=== PATIENT | female | born 1955 | race Caucasian/White ===

== ENCOUNTER 2021-10-08 16:36 | Emergency (ER) | payer OTHER ==
--- OUTSIDE RECORDS SUMMARY | 2021-10-08 16:39 | XMS REPORT | Continuity of Care Document ---
:1955 Author Organization [facility] t Address [address] [place] [address] Care Team Providers Name Role Phone Tani FOFANA Attending Clinician Unavailable Jose L MAC Attending Clinician Payers Payer Name Policy Type Policy Number Effective Date Expiration Date [place]iley ESPARZA [facility] [id number] 2018 00:00:00 Problems Condition Condition Condition Status Onset Resolution Last Treating Co mments Source Name Details Category Date Date Treatment Clinician Date Elevated Elevated Disease Active Unive rs AST (SGOT) AST (SGOT) 02-22 it y of 00:00: [place] [facility] Chronic Chronic Disease Active Univers constipati constipati 02-18 it y of on on 00:: Medical Branch Fatigue, Fatigue, Disease Active Unive rs unspecifie unspecifie 02-18 it y of d type d type 00:00: Medical Branch Stress at Stress at Disease Active Uni vers home home 02-18 ity of 00:: Medical Branch Stress at Stress at Disease Active Uni vers work work 02-18 ity of 00:: Medical Branch Essential Essential Disease Active Uni vers hypertensi hypertensi 02-18 it y of on on 00:: Medical Branch Hyperlipid Hyperlipid Disease Active U nivers emia, emia, 02-18 ity of [place]spec[place] Medical hyperlipid hyperlipid Br anch emia type emia type Allergies, Adverse Reactions, Alerts Allergy Allergy Status Severity Reaction(s) Onset Inactive Treating Comm ents Source Name Type Date Date Clinician Ibuprofe Propensi Active Hives Univer s n ty to 4-30 ity of adverse 00:00: [place] reaction 00 Medical s Branch IBUPROFE DRUG Active Hives Univers N INGREDI 4-30 ity of 00:00: [place] 00 Medical Branch Erythrom Propensi Active Unknown - Uni vers ycin ty to See comments 02-12 ity of adverse 00:00: [place] reaction 00 Medical s Branch ERYTHROM DRUG Active Unknown-Cmnt Un pola YCIN 02-12 ity of 00:00: [place] 00 Medical Branch Sulfa Propensi Active Unknown - 2014-08 Unive rs (Sulfona ty to See comments 0-27 it y of mide adverse 00:00: [place] Antibiot reaction 00 Medica l ics) s Branch SULFA Drug Active Unknown-Cmnt 2014-08 Univ ers (SULFONA Class 0-27 ity of MIDE 00:00: [place] ANTIBIOT 00 Medical ICS) Branch Social History Social Habit Start Date Stop Date Quantity Comments Source Alcohol intake [facility] Status Start Date Stop Date Source Never smoker [facility] Medications Ordered Filled Start Stop Current Ordering Indication Dosage Frequency Signature Comments Components Source Medication Medication Date Date Medication? Clinician (SIG) Name Name hydroCHLORO Yes [id number] 25mg Take 1 Univers thiazide 25 8-15 tablet by ity of mg tablet 00:00: mouth [place] 00 every Medical morning. Branch hydroCHLORO Yes [id number] 25mg Take 1 Univers thiazide 25 8-15 tablet by ity of mg tablet 00:00: mouth [place] 00 every Medical morning. Branch lovastatin Yes [id number] 20mg Take 1 U nivers 20 mg 7-24 tablet by ity of tablet 00:00: mouth at [place] 00 bedtime. Medical Branch lovastatin Yes [id number] 20mg Take 1 U nivers 20 mg 7-24 tablet by ity of tablet 00:00: mouth at [place] 00 bedtime. Medical Branch HYDROCHLORO 2019- No [id number] 25mg TAKE 1 Univers THIAZIDE 25 7-16 08-15 TABLET BY it y of mg tablet 00:00: 00:00 MOUTH [place] 00 :00 EVERY Medical MORNING Branch ALPRAZOLAM Yes [id number] TAKE 1 U nivers 0.5 mg 4-09 TABLET BY ity of tablet 00:00: MOUTH [place] 00 EVERY DAY Medical NEEDED Branch FOR ANXIETY ALPRAZOLAM Yes [id number] TAKE 1 U nivers 0.5 mg 4-09 TABLET BY ity of tablet 00:00: MOUTH [place] 00 EVERY DAY Medical NEEDED Branch FOR ANXIETY vortioxetin Yes [id number] 10mg Take 10 mg Univers e 4-30 by mouth ity of ([place] 10 mg Tab 00 Medical [facility] montelukast Yes [id number] 10mg Take 1 Univers 10 mg 4-30 tablet by ity of tablet 00:00: mouth [place] 00 daily. Medical Branch linaclotide Yes [id number] 290mg Take 290 Univers (LINZESS) 4-30 mg by ity of 290 mcg Cap 00:00: mouth [place] 00 daily. Medical Branch vortioxetin Yes [id number] 10mg Take 10 mg Univers e 4-30 by mouth ity of ([place] 10 mg Tab 00 Medical Branch montelukast Yes [id number] 10mg Take 1 Univers 10 mg 4-30 tablet by ity of tablet 00:00: mouth [place] 00 daily. Medical Branch linaclotide Yes [id number] 290mg Take 290 Univers (LINZESS) 4-30 mg by ity of 290 mcg Cap 00:00: mouth [place] 00 daily. Medical Branch Procedures This patient has no known procedures. Encounters Start End Encounter Admission Attending Care Care Encounter Source Date/Time Date/Time Type Type Clinicians Facility Department ID 2020-10-14 2020-10-14 Outpatient Kesly FOFANA [facility] [id number] Univers 15:20:00 15:20:00 [id number] 2020-10-14 Outpatient Kelsy FOFANA [facility] [id number] Univers 15:20:00 [facility]:20:[facility]-09[facility]16 2020-09-16 Outpatient Kelsy FOFANA [facility] [id number] Univers 15:20:00 15:20:00 MARY [id number] [facility] 2020-09-16 2020-09-16 Outpatient Kelsy FOFANA [facility] [id number] Univers 15:20:00 15:20:00 MARY [facility] 2019-04-17 2019-04-17 [facility] [id number] 00:00:00 00:00:00 [facility] [id number] [place] [id number] Professio [phone] [place] [address] [address] 2019-04-17 2019-04-17 [facility] [id number] Univers 00:00:00 00:00:00 [facility] [id number] it y of [place] [id number] Vinay as Professio [phone] [address] 2019-03-29 2019-03-29 [facility] [id number] 00:00:00 00:00:00 [facility] [id number] [place] [id number] Professio [phone] [place] [address] [address] 2019-03-29 2019-03-29 [facility] [id number] Univers 00:00:00 00:00:00 [facility] [id number] it y of [place] [id number] Vinay as Professio [phone] [address] Results This patient has no known results.
[2021-10-08] MEDS ORDERED: NA CHLORIDE 0.9% 500 ML ONE (17:53)
[2021-10-08] MEDS ORDERED: KETOROLAC 30 MG/ML INJ ONE (18:37)
--- NOTE | 2021-10-08 19:44 | RAD REPORT ---
EXAM DESCRIPTION: CTAbdomen Pelvis W Contrast - 10/08/2021 7:26 pm CLINICAL HISTORY: ABD PAIN COMPARISON: Head Brain Wo Cont dated 10/17/2020; Head Brain Wo Cont dated 04/18/2020No comparisons TECHNIQUE: CT of the abdomen and pelvis was performed. All CT scans are performed using dose optimization technique as appropriate and may include automated exposure control or mA/KV adjustment according to patient size. FINDINGS: Lower chest: Small hiatal hernia. Liver: No acute abnormality or suspicious lesions. Biliary: No biliary ductal dilatation. Stomach: No significant focal abnormality. Duodenum: No significant focal abnormality. Pancreas: No significant abnormality. Spleen: No significant abnormality. Adrenal: No suspicious lesions. Kidney/ureter: No hydronephrosis. 8 mm stone in the upper pole the right kidney. Punctate stone left kidney. Left renal cyst . Retroperitoneum: No retroperitoneal adenopathy. Vascular: No aneurysm. Bowel: Moderate colonic stool.. Appendix not identified. No secondary signs of acute appendicitis . Peritoneum: No ascites or free air. Bladder: Grossly unremarkable. Reproductive: No adnexal masses. Bones: Subacute appearing L1 compression fracture with less than 20% loss of height anteriorly. No joe ny retropulsion. Other: n/a IMPRESSION: No acute intra-abdominal or pelvic finding. Subacute L1 compression fracture. Moderate pancolonic stool burden suggesting constipation. No bowel obstruction .
[2021-10-08] MEDS ORDERED: FLEET ENEMA ADULT PR ONE (20:15)
--- NOTE | 2021-10-08 21:33 | ER ---
Nurse's Notes [facility] Name: Ignacia Trotter Age: 66 yrs Sex: Female : 1955 Arrival Date: 10/08/2021 Time: 16:38 Bed 24 Private MD: Diagnosis: Constipation, unspecified Presentation: 10/08 16:39 Chief complaint: Patient states: its a problem i have had for years and years. i have tw2 such extreme pain on the left side of my back and up under my ribs. it got so bad i made an appt with my dr. i got xrays on the . my dr put me on some medication but it hasnt helped. she called me back an hour ago with results and said i have so much fecal matter backed up that she wanted me to come get a CT and was afraid of a bowel obstruction or a sleeping part of my bowel. and i have been nauseous with it but havent vomited. i have passed a few pellet size stools but that's it. Coronavirus screen: At this time, the client does not indicate any symptoms associated with coronavirus-19. Ebola Screen: Patient denies travel to an Ebola-affected area in the 21 days before illness onset. Initial Sepsis Screen: Does the patient meet any 2 criteria? No. Patient's initial sepsis screen is negative. Does the patient have a suspected source of infection? No. Patient's initial sepsis screen is negative. Risk Assessment: Do you want to hurt yourself or someone else?. Onset of symptoms was October 08, 2021. 16:39 Method Of Arrival: Ambulatory tw2 16:39 Acuity: MARS 3 tw2 Triage Assessment: 16:48 General: Appears in no apparent distress. slender, well groomed, Behavior is calm, tw2 cooperative, appropriate for age. Pain: Complains of pain in abdomen. Musculoskeletal: Range of motion: intact in all extremities. Historical: - Allergies: 16:46 Sulfa (Sulfonamide Antibiotics); tw2 16:46 Ibuprofen; tw2 16:48 Erythromycin; tw2 - Home Meds: 16:46 ezetimibe-simvastatin 10-10 mg oral tab 1 tab once daily [Active]; sertraline 50 mg tw2 oral tab 1 tab once daily [Active]; - PMHx: 16:46 Hypercholesterolemia; tw2 - PSHx: 16:46 tubal ligation; cyst removed right index finger; right foot sx; tw2 - Immunization history:: Client reports receiving the 2nd dose of the Covid vaccine, Flu vaccine is up to date. - Social history:: Smoking status: Patient denies any tobacco usage or history of. Screenin:57 Abuse screen: Denies threats or abuse. Nutritional screening: No deficits noted. tw2 Tuberculosis screening: No symptoms or risk factors identified. Fall Risk None identified. Assessment: 17:09 General: Appears in no apparent distress. comfortable. Pain: Complains of pain in lr4 abdomen and back Pain radiates to back Pain currently is 8 out of 10 on a pain scale. at worst was 10 out of 10 on a pain scale. Pain began years ago. Neuro: No deficits noted. Cardiovascular: No deficits noted. Respiratory: No deficits noted. GI: Abdomen is flat, non-distended, mass in LUQ Reports upper abdominal pain, constipation, nausea, Patient currently denies vomiting. Musculoskeletal: No deficits noted. 19:21 General: Pt taken to CT by tech, via w/c. . joe 19:32 General: The pt just returned from CT. . joe 21:35 Reassessment: Patient states feeling better. Patient states symptoms have improved. Pt lr4 departed ed ambulatory with all personal effects, vss, pt in nad. Neuro: No deficits noted. Vital Signs: 16:39 BP 172 / 95; Pulse 87; Resp 17; Temp 98.2(TE); Pulse Ox 99% on R/A; Weight 60.78 kg tw2 (R); Height 5 ft. 3 in. (160.02 cm); Pain 8/10; 18:02 BP 157 / 89; Pulse 68; Resp 15; Pulse Ox 99% ; Pain 8/10; eo2 18:30 BP 156 / 90; Pulse 72; Resp 15; Pulse Ox 100% ; Pain 8/10; eo2 19:03 Pain 6/10; eo2 19:40 BP 164 / 96; Pulse 84; Resp 18; Pulse Ox 100% on R/A; lr4 20:30 BP 127 / 69; Pulse 73; Resp 18; Pulse Ox 100% on R/A; ss7 21:00 BP 121 / 78; Pulse 75; Resp 18; Pulse Ox 98% ; lr4 16:39 Body Mass Index 23.74 (60.78 kg, 160.02 cm) tw2 ED Course: 16:38 Patient arrived in ED. am2 16:45 Lino Rodriguez MD is Attending Physician. kdr 16:46 Triage completed. tw2 16:50 Arm band placed on. tw2 16:50 Bed in low position. Call light in reach. tw2 16:54 Karla Domingo, RN is Primary Nurse. lr4 17:09 Inserted saline lock: 20 gauge in right antecubital area, using aseptic technique. lr4 17:12 No provider procedures requiring assistance completed. lr4 17:56 Basic Metabolic Panel Sent. eo2 17:56 CBC with Diff Sent. eo2 17:56 Hepatic Function Sent. eo2 17:56 Lipase Sent. eo2 18:02 Pulse ox on. NIBP on. Door closed. Noise minimized. Warm blanket given. eo2 19:01 Report given to Yolanda RUIZ. eo2 19:13 Mitchell Babcock PA is PHCP. cp 19:26 CT Abd/Pelvis - IV Contrast Only In Process Unspecified. EDMS 21:36 IV discontinued. lr4 Administered Medications: 18:01 Drug: NS 0.9% 500 ml Route: IV; Rate: bolus; Site: right antecubital; eo2 19:03 Follow up: Response: No adverse reaction; IV Status: Completed infusion; IV Intake: eo2 500ml 18:36 Drug: Ketorolac 15 mg Route: IVP; Site: right antecubital; eo2 19:03 Follow up: Pain 6/10 Adult; Response: No adverse reaction eo2 21:34 Follow up: Response: Pain is decreased lr4 20:27 Drug: Fleet Enema (sodium phosphate) 133 ml Route: ME; lr4 21:34 Follow up: Response: No adverse reaction; Marked relief of symptoms lr4 Intake: 19:03 IV: 500ml; Total: 500ml. eo2 Outcome: 21:32 Discharge ordered by . cp 21:33 Discharged to home ss7 21:33 Condition: good 21:33 Discharge instructions given to patient, Instructed on discharge instructions, follow up and referral plans. Demonstrated understanding of instructions. 21:43 Patient left the ED. lr4 Signatures: Dispatcher [employer] EDMS Lino Rodriguez MD MD kdr Mitchell Babcock PA PA cp Wise, Tara, RN RN tw2 Regina Cole am2 Monique Marie RN RN joe Anika Estevez RN RN eo2 Yolanda Paige RN RN ss7 Karla Domingo RN RN lr4 Corrections: (The following items were deleted from the chart) 16:49 16:46 Allergies: arithromycin; 16:49 16:46 Home Meds: ezetimibe 10 mg oral tab 1 tab once daily;
--- NOTE | 2021-10-08 21:33 | EDPHYS ---
Physician Documentation [facility] Name: Ignacia Trotter Age: 66 yrs Sex: Female : 1955 Arrival Date: 10/08/2021 Time: 16:38 Bed 24 Private MD: ED Physician Lino Rodriguez HPI: 10/08 18:22 This 66 yrs old Female presents to ER via Ambulatory with complaints of Flank Pain, kdr Constipation. 18:22 The patient presents with abdominal pain in the left upper quadrant, Left flank. Onset: kdr The symptoms/episode began/occurred Last week or so has become worse despite being put on MiraLAX and other anticonstipation medicine. The symptoms do not radiate. Associated signs and symptoms: none. The symptoms are described as achy, constant, crampy, vague. Modifying factors: The symptoms are alleviated by nothing. Severity of pain: At its worst the pain was mild moderate just prior to arrival, in the emergency department the pain is unchanged. The patient has experienced similar episodes in the past, chronically. The patient has been recently seen by a physician: the patient's primary care provider. Patient states that she has had an issue with constipation for many years. Recently however it is become much worse when she has had focal pain in her left upper quadrant and left flank. Recently she saw her doctor for this problem and was told that she had significant amount of fecal material in her abdomen. Recently her physician became concerned that she may have a mechanical obstruction or ileus. Her PCP sent her to the ED for a CT scan of her abdomen. Historical: - Allergies: 16:46 Sulfa (Sulfonamide Antibiotics); tw2 16:46 Ibuprofen; tw2 16:48 Erythromycin; tw2 - Home Meds: 16:46 ezetimibe-simvastatin 10-10 mg oral tab 1 tab once daily [Active]; sertraline 50 mg tw2 oral tab 1 tab once daily [Active]; - PMHx: 16:46 Hypercholesterolemia; tw2 - PSHx: 16:46 tubal ligation; cyst removed right index finger; right foot sx; tw2 - Immunization history:: Client reports receiving the 2nd dose of the Covid vaccine, Flu vaccine is up to date. - Social history:: Smoking status: Patient denies any tobacco usage or history of. ROS: 18:22 Constitutional: Negative for fever, chills, and weight loss, Eyes: Negative for injury, kdr pain, redness, and discharge, ENT: Negative for injury, pain, and discharge, Neck: Negative for injury, pain, and swelling, Cardiovascular: Negative for chest pain, palpitations, and edema, Respiratory: Negative for shortness of breath, cough, wheezing, and pleuritic chest pain, Back: Negative for injury and pain, : Negative for injury, bleeding, discharge, and swelling, MS/Extremity: Negative for injury and deformity, Skin: Negative for injury, rash, and discoloration, Neuro: Negative for headache, weakness, numbness, tingling, and seizure activity. Psych: Negative for depression, anxiety, suicide ideation, homicidal ideation, and hallucinations, Allergy/Immunology: Negative for hives, rash, and allergies, Endocrine: Negative for neck swelling, polydipsia, polyuria, polyphagia, and marked weight changes, Hematologic/Lymphatic: Negative for swollen nodes, abnormal bleeding, and unusual bruising. 18:22 Abdomen/GI: Positive for abdominal pain, nausea, constipation, flatulence, Negative for abdominal pain, black/tarry stool, rectal pain, rectal bleeding, bowel incontinence. Exam: 18:22 Constitutional: This is a well developed, well nourished patient who is awake, alert, kdr and in no acute distress. Head/Face: Normocephalic, atraumatic. Eyes: Pupils equal round and reactive to light, extra-ocular motions intact. Lids and lashes normal. Conjunctiva and sclera are non-icteric and not injected. Cornea within normal limits. Periorbital areas with no swelling, redness, or edema. Neck: Trachea midline, no thyromegaly or masses palpated, and no cervical lymphadenopathy. Supple, full range of motion without nuchal rigidity, or vertebral point tenderness. No Meningismus. Chest/axilla: Normal chest wall appearance and motion. Nontender with no deformity. No lesions are appreciated. Cardiovascular: Regular rate and rhythm with a normal S1 and S2. No gallops, murmurs, or rubs. Normal PMI, no JVD. No pulse deficits. Respiratory: Lungs have equal breath sounds bilaterally, clear to auscultation and percussion. No rales, rhonchi or wheezes noted. No increased work of breathing, no retractions or nasal flaring. Back: No spinal tenderness. No costovertebral tenderness. Full range of motion. Skin: Warm, dry with normal turgor. Normal color with no rashes, no lesions, and no evidence of cellulitis. MS/ Extremity: Pulses equal, no cyanosis. Neurovascular intact. Full, normal range of motion. Neuro: Awake and alert, GCS 15, oriented to person, place, time, and situation. Cranial nerves II-XII grossly intact. Motor strength 5/5 in all extremities. Sensory grossly intact. Cerebellar exam normal. Normal gait. Psych: Awake, alert, with orientation to person, place and time. Behavior, mood, and affect are within normal limits. 18:22 Abdomen/GI: Inspection: abdomen appears normal, Bowel sounds: active, Palpation: soft, mild abdominal tenderness, in the anterior aspect of left lateral abdomen and left upper quadrant. Vital Signs: 16:39 BP 172 / 95; Pulse 87; Resp 17; Temp 98.2(TE); Pulse Ox 99% on R/A; Weight 60.78 kg tw2 (R); Height 5 ft. 3 in. (160.02 cm); Pain 8/10; 18:02 BP 157 / 89; Pulse 68; Resp 15; Pulse Ox 99% ; Pain 8/10; eo2 18:30 BP 156 / 90; Pulse 72; Resp 15; Pulse Ox 100% ; Pain 8/10; eo2 19:03 Pain 6/10; eo2 19:40 BP 164 / 96; Pulse 84; Resp 18; Pulse Ox 100% on R/A; lr4 20:30 BP 127 / 69; Pulse 73; Resp 18; Pulse Ox 100% on R/A; ss7 21:00 BP 121 / 78; Pulse 75; Resp 18; Pulse Ox 98% ; lr4 16:39 Body Mass Index 23.74 (60.78 kg, 160.02 cm) tw2 MDM: 19:00 Differential diagnosis: nephrolithiasis, pyelonephritis, UTI, constipation, bowel cp obstruction. 21:32 Patient medically screened. cp 21:32 Data reviewed: vital signs, nurses notes, lab test result(s), radiologic studies, CT cp scan. 21:32 Counseling: I had a detailed discussion with the patient and/or guardian regarding: the cp historical points, exam findings, and any diagnostic results supporting the discharge/admit diagnosis, lab results, radiology results, the need for outpatient follow up, a family practitioner, to return to the emergency department if symptoms worsen or persist or if there are any questions or concerns that arise at home. Response to treatment: the patient's symptoms have markedly improved after treatment, VSS. CT abdomen/pelvis negative for bowel obstruction. Patient observed to have bowel movement while in ED after administration of enema. Will discharge to home for continued monitoring. 10/08 17:24 Order name: CT Abd/Pelvis - IV Contrast Only; Complete Time: 19:55 kdr 10/08 17:24 Order name: IV Saline Lock; Complete Time: 17:56 kdr 10/08 17:24 Order name: Labs collected and sent; Complete Time: 17:56 kdr Administered Medications: 18:01 Drug: NS 0.9% 500 ml Route: IV; Rate: bolus; Site: right antecubital; eo2 19:03 Follow up: Response: No adverse reaction; IV Status: Completed infusion; IV Intake: eo2 500ml 18:36 Drug: Ketorolac 15 mg Route: IVP; Site: right antecubital; eo2 19:03 Follow up: Pain 6/10 Adult; Response: No adverse reaction eo2 21:34 Follow up: Response: Pain is decreased lr4 20:27 Drug: Fleet Enema (sodium phosphate) 133 ml Route: CO; lr4 21:34 Follow up: Response: No adverse reaction; Marked relief of symptoms lr4 Disposition Summary: 10/08/21 21:32 Discharge Ordered Location: Home cp Problem: new cp Symptoms: have improved cp Condition: Stable cp Diagnosis - Constipation, unspecified cp Followup: cp - With: Private Physician - When: 2 - 3 days - Reason: Recheck today's complaints Discharge Instructions: - Discharge Summary Sheet cp - Constipation, Adult cp - High-Fiber Diet cp Forms: - Medication Reconciliation Form cp - Thank You Letter cp - Antibiotic Education cp - Prescription Opioid Use cp Signatures: Dispatcher [employer] EDMS Lino Rodriguez MD MD kdr Mitchell Babcock PA PA cp Elly Pierre RN RN tw2 Anika Estevez RN RN eo2 Karla Domingo RN RN lr4 Corrections: (The following items were deleted from the chart) 16:49 16:46 Allergies: arithromycin; tw2 tw2 16:49 16:46 Home Meds: ezetimibe 10 mg oral tab 1 tab once daily; tw2 tw10/09 02:15 10/08 18:00 Differential diagnosis: nephrolithiasis, pyelonephritis, UTI, constipation, cp bowel obstruction cp
[2021-10-08 21:54] VITALS: TEMP 98.2
[2021-10-08 22:06] VITALS: BP 121/78; O2SAT 98
== END 2021-10-08 21:43 | disposition home or self-care (01) ==
LOC: ER 16:36
DX: K59.00 Constipation, unspecified (principal); Z88.2 Allergy status to sulfonamides; Z88.3 Allergy status to other anti-infective agents; Z88.6 Allergy status to analgesic agent
CPT/HCPCS: 96361; 82565; 74177; 96374; 99284; Q9967; J7040